=== PATIENT | male | born 1985 | race Hispanic/Latino ===

== ENCOUNTER 2018-06-07 05:30 | Day surgery (SDC) | payer OTHER ==
[~2018-06-07] VITALS: Ht 179.1 cm; Wt 78.9 kg
[2018-06-07] VITALS (8 sets, daily range): BP systolic 103–120; BP diastolic 61–86
[~2018-06-07 05:30] MED LIST: AEC81 PO; AMYL1CAP63 PO; ATOR10 PO; CHOL4PAC21 PO; CLOP75TA32 PO; DEXL60CA3 PO; HYDR-4060 PO; MECL-129 PO; METO10TA41 PO; OMEP40CA37 PO; ONDA4TAB10 PO; SERT25TA5 PO
[2018-06-07] MEDS ORDERED: PROPOFOL 10 MG/ML 20ML VIAL IV ONE (06:25)
[2018-06-07] MEDS ORDERED: SODIUM CHLORIDE 0.9% 1000ML 1,000 ML IV ONE (06:33)
[2018-06-07] MEDS ORDERED: INSU100I26 SQ ×2 (06:45)
[2018-06-07] MEDS ORDERED: CLOP75TA14 PO (07:50)
== END 2018-06-07 09:00 | disposition home or self-care (01) ==
LOC: ENDO 05:30 → DAH 05:30 → ENDO 09:00 → EDSTATUS 14:35
PROVIDERS: ATTEND Internal Medicine
DX: K86.1 Other chronic pancreatitis (principal); F41.9 Anxiety disorder, unspecified; F32.9 Major depressive disorder, single episode, unspecified; E11.9 Type 2 diabetes mellitus without complications; G40.909 Epilepsy, unspecified, not intractable, without status epilepticus; F15.90 Other stimulant use, unspecified, uncomplicated; Z86.73 Personal history of transient ischemic attack (TIA), and cerebral infarction without residual deficits; Z90.49 Acquired absence of other specified parts of digestive tract; Z98.890 Other specified postprocedural states; Z79.891 Long term (current) use of opiate analgesic; Z79.899 Other long term (current) drug therapy; Z88.0 Allergy status to penicillin; Z79.82 Long term (current) use of aspirin; Z79.4 Long term (current) use of insulin; Z83.3 Family history of diabetes mellitus; Z80.0 Family history of malignant neoplasm of digestive organs
CPT/HCPCS: 43231; 82948; A4606; J2704; J7030

== ENCOUNTER 2019-01-25 10:09 | Emergency (ER) | payer OTHER ==
[~2019-01-25 10:09] MED LIST changes: -CHOL4PAC21 PO; +CLOP75TA14 PO; -CLOP75TA32 PO; +INSU100I26 SQ; -OMEP40CA37 PO
[2019-01-25] MEDS ORDERED: SODIUM CHLORIDE 0.9% 1000ML 1,000 ML IV ONE (10:30)
[2019-01-25 10:49] LABS: BASOPHILS % (AUTO) 0.5 % (0.0-5.0); EOSINOPHILS % (AUTO) 1.3 % (0.0-8.0); HEMATOCRIT 41.4 % (42-54); LYMPHOCYTES % (AUTO) 31.6 % (21.0-51.0); MEAN CORPUSCULAR HEMOGLOBIN 30.8 pg (27.0-33.0); MEAN CORPUSCULAR HGB CONC 35.2 g/dL (32.0-36.0); MEAN CORPUSCULAR VOLUME 87.5 fL (79-99); MONOCYTES % (AUTO) 6.8 % (3.0-13.0); NEUTROPHILS % (AUTO) 59.8 % (40.0-77.0); PLATELET COUNT (AUTO) 220 K/uL (130-400); RED BLOOD CELL COUNT(AUTO) 4.74 MIL/uL (4.50-6.20); WHITE BLOOD COUNT (AUTO) 10.9 K/uL (4.8-10.8)
[2019-01-25 10:54] LABS: APPEARANCE,URINE CLEAR (CLEAR); BILIRUBIN,URINE NEGATIVE (NEGATIVE); COLOR,URINE YELLOW (YELLOW); GLUCOSE, URINE (UA) >=1000 mg/dL (NEGATIVE); KETONES,URINE NEGATIVE (NEGATIVE); LEUKOCYTE ESTERASE ,URINE NEGATIVE (NEGATIVE); NITRATE,URINE NEGATIVE (NEGATIVE); OCCULT BLOOD,URINE NEGATIVE (NEGATIVE); PROTEIN,URINE NEGATIVE (NEGATIVE); UROBILINOGEN,URINE 0.2 mg/dL (0.2-1.0)
[2019-01-25] MEDS ORDERED: MORPHINE SULFATE 2 MG/ML 1ML SYG ONE (10:57)
[2019-01-25 11:12] LABS: ALBUMIN 3.8 g/dL (3.5-5.0); BILIRUBIN,TOTAL 0.5 mg/dL (0.2-1.0); POTASSIUM 4.4 mmol/L (3.5-5.1)
[2019-01-25 11:36] LABS: SQUAMOUS EPITHELIAL CELL,UR 0-2 /HPF (0-2)
[2019-01-25 11:38] LABS: BACTERIA,URINE Rare /HPF (None Seen); RBC,URINE None Seen /HPF (0-1); WBC,URINE 0-1 /HPF (0-1)
[2019-01-25] MEDS ORDERED: INSULIN HUMULIN R 100 UNIT/ML 3ML ONE (12:10)
== END 2019-01-25 13:10 | disposition home or self-care (01) ==
LOC: EDH 10:09
DX: K86.1 Other chronic pancreatitis (principal); R10.13 Epigastric pain; R11.0 Nausea; E11.9 Type 2 diabetes mellitus without complications; Z88.0 Allergy status to penicillin
CPT/HCPCS: 36415; 80053; 81001; 83690; 85025; 96372; 96374; 96375; 99285; J1815; J7030